=== PATIENT | male | born 1965 | race Caucasian/White ===

== ENCOUNTER → 2018-09-14 07:58 | Outpatient (CLI) | payer OTHER, SELFPAY ==
--- NOTE | 2018-09-14 | DI.NM.S_ITS ---
PROCEDURE: NM BONE 3 PHASE RADIOPHARMACEUTICAL: 21.3 mCi Tc-99m MDP IV. INDICATIONS: FAILURE OF TOTAL KNEE REPLACEMENT TECHNIQUE: Multiple bone scintigrams were obtained after intravenous injection of Tc-99m MDP, including flow, blood pool, and delayed images centered to the region of interest. COMPARISON: [facility], CR, XR KNEE ARTHRITIC SERIES RT, 11/08/2017, 11:33. [facility], CR, XR KNEE ARTHRITIC SERIES LT, 08/24/2017, 10:30. [facility], CR, KNEE 1-2 VIEWS RIGHT, 11/29/2017, 9:54. [facility], CR, XR KNEE ARTHRITIC SERIES RT, 12/13/2017, 15:37. [facility], CR, XR KNEE ARTHRITIC SERIES RT, 01/11/2018, 10:54. FINDINGS: A triple phase bone scan is obtained, including flow, blood pool and delayed images centered to knees. There is mild, symmetrically increased activity on flow and blood pool images in the knees bilaterally. Photopenia over the knees bilaterally on delayed images is consistent with bilateral total knee arthroplasties. There is low level increased activity around the knee prosthesis bilaterally, more pronounced in the lateral aspect of the right knee. IMPRESSION: The scintigraphic findings are nonspecific with mildly increased flow, blood pool and delayed activity involving both knees. Early knee prosthesis loosening or infection if a diagnostic possibility, but simultaneous bilateral occurrence is rare. Dictated by: Augusto Rivera M.D. on 09/14/2018 at 15:08 Approved by: Augusto Rivera M.D. on 09/14/2018 at 17:52
== END ==
PROVIDERS: Family Provider Family Medicine; PCP Family Medicine; Visit Provider Orthopaedic Surgery
DX: T84.89XA Other specified complication of internal orthopedic prosthetic devices, implants and grafts, initial encounter (principal)
CPT/HCPCS: 78315; A9503